=== PATIENT | female | born 1985 | race African-American/Black ===

== ENCOUNTER 2017-02-05 15:05 | Emergency (ER) | payer MEDICAID, OTHER ==
--- NOTE | 2017-02-05 16:39 | UC ---
Complaint Female HPI - HPI Summary HPI Summary: PT'S BOYFRIEND WAS HERE EARLIER TODAY AND TX FOR GC/CHLAMYDIA BASED ON SYMPTOMS. PT WOULD LIKE TO BE TREATED DUE TO THIS EXPOSURE. SHE IS CURRENTLY ASYMPTOMATIC. - History Of Current Complaint Chief Complaint: UCSTDScreening Stated Complaint: STD TESTING Time Seen by Provider: 02/05/17 16:28 Hx Obtained From: Patient Hx Last Menstrual Period: 01/18/17 Severity Currently: None Pain Intensity: 0 Pain Scale Used: 0-10 Numeric Character: Not Applicable Associated Signs And Symptoms: Negative: Fever, Back Pain, Vaginal Bleeding/ Discharge, Vaginal Discharge, Nausea, Vomiting(# Of Episodes =) - Allergies/Home Medications Allergies/Adverse Reactions: Allergies Allergy/AdvReac Type Severity Reaction Status Date / Time No Known Allergies Allergy Verified 02/05/17 15:13 Home Medications: Home Medications NK [No Home Medications Reported] 02/05/17 [History Confirmed 02/05/17] PMH/Surg Hx/FS Hx/Imm Hx Previously Healthy: Yes - Surgical History Surgical History: None - Family History Known Family History: Positive: Hypertension - Social History Alcohol Use: Occasionally Substance Use Type: None Smoking Status (MU): Light Every Day Tobacco Smoker Amount Used/How Often: 1/2ppd Review of Systems Constitutional: Negative Skin: Negative Respiratory: Negative Cardiovascular: Negative Gastrointestinal: Negative Musculoskeletal: Negative All Other Systems Reviewed And Are Negative: Yes Physical Exam Triage Information Reviewed: Yes Appearance: Well-Appearing, No Pain Distress, Well-Nourished Vital Signs: Initial Vital Signs Temp 98.1 F 02/05/17 15:09 Pulse 79 02/05/17 15:09 Resp 16 02/05/17 15:09 BP 119/75 02/05/17 15:09 Pulse Ox 99 02/05/17 15:09 Vital Signs Reviewed: Yes Eyes: Positive: Conjunctiva Clear ENT: Positive: Hearing grossly normal Neck: Positive: Supple Respiratory: Positive: No respiratory distress, No accessory muscle use Cardiovascular: Positive: Pulses Normal Abdomen Description: Positive: Soft Musculoskeletal: Positive: No Edema Neurological: Positive: Alert Psychological: Positive: Age Appropriate Behavior Skin: Negative: rashes Complaint Female Dx - Course Course Of Treatment: WILL TREAT WITH ROCEPHIN AND AZITH TO COVER FOR GC/ CHLAMYDIA. BLOOD DRAW FOR HIV AND SYPHILIS. NO SEX FOR AT LEAST 7 DAYS. - Differential Dx/Diagnosis Provider Diagnoses: HAZARDOUS BODY FLUID EXPOSURE - STD TESTING Discharge - Discharge Plan Condition: Stable Disposition: HOME Patient Education Materials: Sexually Transmitted Diseases (ED) Referrals: No Primary Care Phys,NOPCP [Primary Care Provider] - Additional Instructions: WILL TREAT WITH ROCEPHIN AND AZITH TO COVER FOR GC/CHLAMYDIA BASED ON YOUR EXPOSURE RISK. BLOOD DRAW FOR HIV AND SYPHILIS. NO SEX FOR AT LEAST 7 DAYS. FOLLOW-UP WITH YOUR PCP IN [place] FOR REPEAT TESTING IN 3-6 MONTHS.
[2017-02-05] MEDS ORDERED: cefTRIAXone VIAL(*) 250 MG VIAL IM ONE (16:51)
[2017-02-05] MEDS ORDERED: Lidocaine 1% MPF* 2 ML VIAL INJ ONE (16:52)
[2017-02-05] MEDS ORDERED: Azithromycin TAB* 250 MG PO ONE (16:55)
[2017-02-05 17:30] VITALS: BP 108/78
[2017-02-06 12:05] LABS: Syphilis Index < 0.1 Index
== END 2017-02-05 17:30 | disposition home or self-care (01) ==
LOC: UCEAST 15:05
DX: Z20.2 Contact with and (suspected) exposure to infections with a predominantly sexual mode of transmission (principal); Z32.02 Encounter for pregnancy test, result negative; F17.210 Nicotine dependence, cigarettes, uncomplicated
CPT/HCPCS: 36415; 81003; 84702; 86592; 86703; 87491; 87591; 96372; 99212; A9270-GY; G0463; J0696

== ENCOUNTER 2019-02-08 13:26 | Emergency (ER) | payer OTHER ==
--- NOTE | 2019-02-08 13:34 | UC ---
Ear Complaint HPI - HPI Summary HPI Summary: 34 yo female presents with RIGHT ear pain for the last 5 days. She tells me that her pain began on 02/04 and was mild. Continued into 02/05 and thought maybe she had ear wax, therefore she rinsed her ear with peroxide with no change. Since that time her ear has gotten more painful and sounds feel muffled. Today she started feeling a little off balance with position changes and head turning. Has not been taking any OTC medications. Denies fever, chills, sinus symptoms, sore throat, cough. - History of Current Complaint Stated Complaint: EAR PAIN Time Seen by Provider: 02/08/19 13:33 Hx Obtained From: Patient Hx Last Menstrual Period: 01/18/17 Onset/Duration: Gradual Onset Severity Initially: Mild Severity Currently: Moderate Pain Intensity: 8 Pain Scale Used: 0-10 Numeric - Allergies/Home Medications Allergies/Adverse Reactions: Allergies Allergy/AdvReac Type Severity Reaction Status Date / Time No Known Allergies Allergy Verified 02/08/19 13:37 Home Medications: Home Medications Ibuprofen 400 mg PO 02/08/19 [History] PMH/Surg Hx/FS Hx/Imm Hx - Additional Past Medical History Additional PMH: None - Surgical History Surgical History: None - Family History Known Family History: Positive: Hypertension - Social History Occupation: Employed Full-time Lives: With Family Alcohol Use: Occasionally Substance Use Type: None Smoking Status (MU): Light Every Day Tobacco Smoker Amount Used/How Often: 1/2ppd Review of Systems All Other Systems Reviewed And Are Negative: Yes Constitutional: Positive: Negative Skin: Positive: Negative Eyes: Positive: Negative ENT: Positive: Ear Ache Respiratory: Positive: Negative Cardiovascular: Positive: Negative Gastrointestinal: Positive: Negative Neurological: Positive: Negative Psychological: Positive: Negative Physical Exam - Summary Physical Exam Summary: GENERAL: NAD. WDWN. No pain distress. SKIN: No rashes, sores, lesions, or open wounds. HEENT: Head: AT/NC Eyes: EOM intact. Conjunctiva clear without inflammation or discharge. Ears: Hearing grossly normal. RIGHT TM with mild erythema, injection , and bulging. No canal edema or drainage. Nose: Nasal mucosa pink and moist. NTTP maxillary and frontal sinus. Throat: Posterior oropharynx without exudates, erythema, or tonsillar enlargement. Uvula midline. NECK: Supple. Nontender. No lymphadenopathy. CHEST: CTAB. No r/r/w. No accessory muscle use. Breathing comfortably and in no distress. CV: RRR. Without m/r/g. Pulses intact. NEURO: Alert. PSYCH: Age appropriate behavior. Triage Information Reviewed: Yes Vital Signs: Vital Signs: Temp Pulse Resp BP Pulse Ox 98.5 F 88 18 104/66 100 02/08/19 13:35 02/08/19 13:35 02/08/19 13:35 02/08/19 13:35 02/08/19 13:35 Vital Signs Reviewed: Yes Ear Complaint Course/Dx - Course Course Of Treatment: Right otitis media - Differential Dx/Diagnosis Provider Diagnosis: Right otitis media Discharge - Sign-Out/Discharge Documenting (check all that apply): Patient Departure All imaging exams completed and their final reports reviewed: No Studies - Discharge Plan Condition: Stable Disposition: HOME Prescriptions: Amoxicillin/Clavulanate TAB* [Augmentin TAB 875*] 875 mg PO BID #14 tab Ibuprofen TAB* [Motrin TAB* 600 MG] 600 mg PO Q8H PRN #30 tab PRN Reason: Pain Patient Education Materials: Ear Infection (ED) Referrals: No Primary Care Phys,NOPCP [Primary Care Provider] - Additional Instructions: If you develop a fever, shortness of breath, chest pain, new or worsening symptoms - please call your PCP or go to the ED immediately. - Billing Disposition and Condition Condition: STABLE Disposition: Home
[2019-02-08 13:38] VITALS: BP 104/66
== END 2019-02-08 13:53 | disposition home or self-care (01) ==
LOC: UCEAST 13:26
DX: H66.91 Otitis media, unspecified, right ear (principal); F17.200 Nicotine dependence, unspecified, uncomplicated
CPT/HCPCS: 99212; G0463